=== PATIENT | male | born 1975 | race African-American/Black ===

== ENCOUNTER 2019-10-31 04:02 | Emergency (ER) | payer SELFPAY ==
[~2019-10-31] VITALS: Ht 185.4 cm; Wt 104.3 kg
[~2019-10-31 04:02] MED LIST: COLCHICINE0.6 M1 PO; HYDROCHLOROTHIA25 MG ORAL; INDOCIN25 MG/5 ML PO; TRAMADOL HCL50 MG ORAL
--- NOTE | 2019-10-31 04:13 | NUR ---
ED Nurse Note: Patient walked in from home d/t right sided flank pain constant 10/10 that worsens at night, per pt the pain started last sunday. Patient aao x 4 and ambulatory with steady gait. Patient denies n/v/d. Patient placed in room, no acute distress noted during assessment.
[2019-10-31 04:15] VITALS: BP 145/82
--- NOTE | 2019-10-31 04:20 | Emergency Room Report ---
History of Present Illness General Chief Complaint: Back Pain-No Injury Source: Patient Present Illness HPI This is a 43-year-old male with no past medical history. He presents with complaint of back pain. Onset for about a week. He said this occurred after he was carrying some heavy construction material on a wheelbarrow. Pain is to his right back and rating forward. Worse with certain movement. Worse with certain position. Pain is 8 out of 10. Sharp in nature. Has not anything for this. Denies any fever chills. Denies any trauma. Denies any incontinence of bowel or urine or hematuria. Allergies: Coded Allergies: No Known Allergies (Unverified , 08/04/18) COVID-19 Screening Contact w/high risk pt: No Experienced COVID-19 symptoms?: No COVID-[address] FREIGHT: No Nursing Documentation-[facility] Hx Hypertension: Yes Review of Systems Eye: Denies: eye pain, blurred vision ENT: Denies: ear pain, nose congestion, throat swelling Respiratory: Denies: cough, shortness of breath Cardiovascular: Denies: chest pain, palpitations Gastrointestinal: Denies: abdominal pain, diarrhea, nausea, vomiting Musculoskeletal: Reports: back pain; Denies: joint pain Skin: Denies: rash Neurological: Denies: headache, numbness Endocrine: Denies: increased thirst, increased urine Hematologic/Lymphatic: Denies: easy bruising All Other Systems: negative except mentioned in HPI Physical Exam Vital Signs Date Time Temp Pulse Resp B/P (MAP) Pulse Ox O2 Delivery O2 Flow Rate FiO2 10/31/19 04:08 98.1 66 18 154/90 (111) 99 Room Air Vitals with high blood pressure Sp02 EP Interpretation: reviewed, normal General Appearance: well appearing, no apparent distress, alert Head: normocephalic, atraumatic Eyes: bilateral eye PERRL, bilateral eye EOMI ENT: hearing grossly normal, normal pharynx Neck: full range of motion, supple, no meningismus Respiratory: chest non-tender, lungs clear, normal breath sounds Cardiovascular #1: regular rate, rhythm, no murmur Gastrointestinal: normal bowel sounds, non tender, no mass, no organomegaly, no bruit, non-distended Musculoskeletal: back normal, normal range of motion, gait/station normal, tender - Tenderness to the right paraspinous muscle along the thoracic and flank area. No midline tenderness. No deformity. No anesthesia. Psychiatric: mood/affect normal Medical Decision Making Diagnostic Impression: Primary Impression: Back pain Qualified Codes: M54.6 - Pain in thoracic spine ER Course Patient presents with back pain. No evidence of cauda equina syndrome, spinal epidural abscess or neoplastic process. CT scan unremarkable. No evidence of kidney stone. CT/MRI/US Diagnostic Results CT/MRI/US Diagnostic Results : Imaging Test Ordered: CT abdomen pelvis Impression Read by radiologist. Negative. Last Vital Signs Date Time Temp Pulse Resp B/P (MAP) Pulse Ox O2 Delivery O2 Flow Rate FiO2 10/31/19 04:15 98.1 82 18 145/82 99 Room Air Status: improved Disposition: HOME, SELF-CARE Condition: Stable Scripts Ibuprofen* (MOTRIN*) 600 Mg Tablet 600 MG ORAL Q6H PRN for For Pain, #30 TAB 0 Refills Prov: Gama Rowland MD 10/31/19 Hydrocodone/Acetaminophen 5-325* (HYDROCODONE/ACETAMINOPHEN 5-325*) 1 Each Tablet 1 TAB ORAL Q6H PRN for For Pain, #20 TAB 0 Refills Prov: Gama Rowland MD 10/31/19 Patient Instructions: Back Pain, Adult Additional Instructions: Follow-up with your doctor in 7 days. Return if symptoms worsen. Gama Rowland MD Oct 31, 2019 04:20
[2019-10-31] MEDS ORDERED: HYDROcodone/Acetamin 5/325 tab ORAL ONE (04:30)
[2019-10-31 04:39] LABS: APPEARANCE,URINE CLEAR; BILIRUBIN, URINE NEGATIVE (NEGATIVE); COLOR,URINE PALE YELLOW; GLUCOSE, URINE (UA) NEGATIVE (NEGATIVE); KETONES,URINE NEGATIVE (NEGATIVE); LEUKOCYTE ESTERASE ,URINE 1+ (NEGATIVE); NITRITE,URINE NEGATIVE (NEGATIVE); PH,URINE 6 (4.5-8.0); PROTEIN,URINE NEGATIVE (NEGATIVE); UROBILINOGEN,URINE NORMAL MG/DL (0.0-1.0)
[2019-10-31] MEDS ORDERED: HYDROmorphone 1mg/ml Carpuject IM ONE (05:00)
--- NOTE | 2019-10-31 05:01 | NUR ---
ED Nurse Note: Patient taken to CT in stable condition
[2019-10-31] MEDS ORDERED: IBUPROFEN600 M1 ORAL (05:45)
[2019-10-31] MEDS ORDERED: HYDROCODON-ACE1 EA15 ORAL (05:45)
--- NOTE | 2019-10-31 06:41 | Diagnostic Imaging Report ---
EXAM: CT Abdomen and Pelvis Without Intravenous Contrast CLINICAL HISTORY: PAIN TECHNIQUE: Axial computed tomography images of the abdomen and pelvis without intravenous contrast. CTDI is 20 9.4 mGy and DLP is 528 mGy-cm. One or more of the following dose reduction techniques were used: automated exposure control, adjustment of the mA and/or kV according to patient size, use of iterative reconstruction technique. COMPARISON: No relevant prior studies available. FINDINGS: Lung bases: Unremarkable. No mass. No consolidation. ABDOMEN: Liver: Unremarkable. Gallbladder and bile ducts: Unremarkable. No calcified stones. No ductal dilation. Pancreas: Unremarkable. Spleen: Unremarkable. No splenomegaly. Adrenals: Unremarkable. No mass. Kidneys and ureters: Unremarkable. No obstructing stones. No hydronephrosis. Stomach and bowel: Increased fecal burden. No diverticulitis. Normal small bowel obstruction. PELVIS: Appendix: No findings to suggest acute appendicitis. Bladder: Unremarkable. No stones. Reproductive: Unremarkable as visualized. ABDOMEN and PELVIS: Intraperitoneal space: Unremarkable. No free air. No significant fluid collection. Bones/joints: No acute fracture. No dislocation. Partial fusion of the bilateral sacroiliac joints with arthritic changes. Soft tissues: Unremarkable. Vasculature: Unremarkable. Lymph nodes: Unremarkable. No enlarged lymph nodes. IMPRESSION: No acute intra-abdominal process. 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
[2019-10-31 06:47] VITALS: BP 142/85
--- NOTE | 2019-10-31 06:47 | NUR ---
ER DISCHARGE NOTE: Patient is cleared to be discharged per ERMD, pt is aox4, on room air, with stable vital signs. pt was given dc and prescription instructions, pt was able to verbalize understanding, pt id band removed. pt is able to ambulate with steady gait. pt took all belongings. pt stable upon discharge.
== END 2019-10-31 06:47 | disposition home or self-care (01) ==
LOC: EMR 04:18
DX: M54.6 Pain in thoracic spine (principal); I10 Essential (primary) hypertension
CPT/HCPCS: 74176; 81003; 96372; 99284; J1170